=== PATIENT | male | born 1985 | race Two or more races ===

== ENCOUNTER 2025-10-22 22:15 | Emergency (ER) | payer OTHER, SELFPAY ==
[2025-10-22 22:22] VITALS: BP 125/86
[2025-10-23 02:26] VITALS: BP 124/75
--- NOTE | 2025-10-23 02:28 | ED.GENMED ---
History of Present Illness
General
Chief Complaint: Eye Problems
Source: patient
Time Seen by Provider: 10/23/25 02:06
History of Present Illness
History of Present Illness:
40-year-old male presents emergency department complaints of right eye drainage and redness for the last 2 days. He denies foreign body sensation, trauma, visual changes, blurry vision, double vision, headache, nausea, vomiting, neck pain, chest
pain, shortness of breath. He does note a very mild sore throat which started yesterday.
Past History
Past History
ED Past Medical History: None
ED Past Surgical History: None
Social History
Tobacco: Non-smoker
Alcohol: None
Drug: None
Employment: Employed
Phy Exam
Physical Exam
Physical Exam:
GENERAL: Alert , in no apparent distress
EYE: pupils equal and reactive, no photophobia, conjunctival injection noted on the right side with obvious discharge, no proptosis, no periorbital erythema or swelling
NECK: Supple, no significant adenopathy.
ENT: o/p clr, mmm, no trismus, no drool, voice clear.
CARDIAC: Regular rate and rhythm .
LUNGS: Clear breath sounds bilaterally, no acute respiratory distress, no wheezes/rales/rhonchi
NEUROLOGICAL: Alert and oriented, no focal neuro deficits
SKIN: Warm and dry, skin intact.
MUSCULOSKELETAL: No edema, well perfused.
PSYCH: Normal and appropriate interaction.
Course
Vital Signs
Initial and Last Documented VS:
Initial Vital Signs
Temp Pulse Resp BP Pulse Ox
97.5 F 78 18 125/86 96
10/22/25 22:22 10/22/25 22:22 10/22/25 22:22 10/22/25 22:22 10/22/25 22:22
Last Documented Vital Signs
Temp Pulse Resp BP Pulse Ox
97.5 F 85 16 124/75 96
10/22/25 22:22 10/23/25 02:26 10/23/25 02:26 10/23/25 02:26 10/23/25 02:30
*Pulse Oximetry
SaO2: 96
Oxygen Mode of Delivery: Room air
Patient hypoxic: no
*Critical Care Note
Total Time (30-74mins, 75-104mins- exclusive of procedures): Not Applicable
Update Note
Update Note:
Patient presents to the Emergency Department with ____eye redness and drainage
Number and Complexity of Problems Addressed at the Encounter
� Chronic conditions affecting care:
� Acute Exacerbation and/or Progression of Chronic Illness:
� Differential Diagnosis includes: Not limited to bacterial conjunctivitis viral conjunctivitis, retained foreign body, URI, etc. etc.
Amount and/or Complexity of Data to be Reviewed and Analyzed
� I performed an independent evaluation of and my interpretation is:
EKG:
CT:
Xrays:
Laboratory Studies:
Other:
� Review of other/old records reveals:
� Clinical information was obtained by an independent historian:
� Prescriptions/Medications Considered but not given:
� Further testing considered but not performed:
Risk of Complications and/or Morbidity or Mortality of Patient Management
� Social determinants of health affecting care:
� Discussion with other providers (PCP, Hospitalists, Consultants, etc):
� Escalation of care including admission/observation vs risk of discharge considered: History and physical extremely consistent with conjunctivitis. Will treat accordingly with recommendations for follow-up
ED Attending Note
-
Portions of this chart may have been created with voice recognition software.� Occasional wrong word or��sound alike� substitutions may have occurred due to the inherent limitations of voice recognition software.
Discharge Plan
Departure
Patient Disposition: Home (Routine Discharge)
Date of Disposition: 10/23/25
Time of Disposition: 02:30
Patient with high blood pressure during this ER visit?: Yes
Condition: Good
Discharge Problem:
Conjunctivitis
Instructions: Conjunctivitis (Pinkeye) (DC), BLOOD PRESSURE
Prescriptions:
New
sulfacetamide sodium 10 % drops
2 drp ophthalmic (eye) Q4H Qty: 15 0RF
Referrals:
Brenda Blanco MD [Family Provider, Internal Medicine] - Follow up in 2-3 days
Activity Restrictions/Additional Instructions:
IF YOU DEVELOP INCREASING REDNESS OR DRAINAGE, ANY VISUAL CHANGES SUCH BLURRY OR DOUBLE VISION, FEVER, FACIAL SWELLING, DIFFICULTY BREATHING, SEVERE HEADACHE, VOMITING, OR OTHER WORRISOME SIGNS, PLEASE RETURN TO THE ER IMMEDIATELY!
Interventions
Interventions:
*General Assessment Last Done: 10/23/25 02:24
*Neglect/Abuse Screening Last Done: 10/22/25 22:22
*ED COVID-19 Vaccine History Last Done: 10/23/25 02:24
*ED Influenza Vaccine History Last Done: 10/23/25 02:24
[facility] Fall Risk Assessment Tool Last Done: 10/23/25 02:24
*Risk Screen - Suicide (C-SSRS) Last Done: 10/22/25 22:22
*Nursing Disposition Last Done: 10/23/25 03:33
Discharge Date and Time
Discharge Date/Time: 10/23/25 03:34
Print Language: FRENCH
== END 2025-10-23 03:34 | disposition home or self-care (01) ==
LOC: EMR 22:15
PROVIDERS: EMERGENCY PHYSICIAN Emergency Medicine; FAMILY PHYSICIAN Internal Medicine
DX: H10.9 Unspecified conjunctivitis (principal); R03.0 Elevated blood-pressure reading, without diagnosis of hypertension
CPT/HCPCS: 99282